=== PATIENT | male | born 1995 | race American Indian/Alaskan Native ===

== ENCOUNTER 2017-09-15 14:06 | Emergency (ER) | payer OTHER ==
[2017-09-15 14:55] VITALS: BP 124/74
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
== END 2017-09-15 16:09 | disposition home or self-care (01) ==
LOC: ED 14:06
DX: M54.9 Dorsalgia, unspecified (principal); F17.200 Nicotine dependence, unspecified, uncomplicated
CPT/HCPCS: 99282